=== PATIENT | female | born 2000 | race Hispanic/Latino ===

== ENCOUNTER 2021-11-27 16:01 | Day surgery (SDC) | payer OTHER ==
[2021-11-27 16:48] VITALS: BMI 39.4
[2021-11-27] MEDS ORDERED: hydrALAZINE 20 MG/ML VIAL SLOW IVP PRN (18:37)
[2021-11-27 19:55] LABS: Bilirubin Neg (Negative); Blood, Urine 25 (Negative); Clarity Clear (Clear); Glucose, Urine (Dipstick) Normal (Negative); Ketone, Urine Negative (Negative); Leukocyte 100 (Negative); Nitrite Negative (Negative); Protein, Urine (Dipstick) Negative (Neg-Trace); Urobilinogen Normal mg/dL (Less than 2)
[2021-11-27 20:38] LABS: Transitional Epithelial 0-3 HPF (None Seen)
[2021-11-27 20:40] LABS: Bacteria/HPF 2+ HPF (None Seen); Mucous/LPF 1+ LPF (<2+)
== END 2021-11-27 21:34 | disposition home or self-care (01) ==
LOC: CSHLD/OP 16:01
PROVIDERS: ATTEND Family Medicine
DX: O26.852 Spotting complicating pregnancy, second trimester (principal); O30.042 Twin pregnancy, dichorionic/diamniotic, second trimester; O23.42 Unspecified infection of urinary tract in pregnancy, second trimester; N39.0 Urinary tract infection, site not specified; O23.592 Infection of other part of genital tract in pregnancy, second trimester; B96.89 Other specified bacterial agents as the cause of diseases classified elsewhere; Z3A.24 24 weeks gestation of pregnancy; Z79.82 Long term (current) use of aspirin
CPT/HCPCS: 81003; 81015; 87480; 87510; 87660; 99284

== ENCOUNTER 2022-03-03 05:44 | Inpatient (IN) | payer OTHER ==
[2022-03-01 11:46] LABS: Hemoglobin 13.6 g/dL (12.0-15.5); Mean Corpuscular HGB CONC 34.3 g/dL (32.0-36.0); Mean Corpuscular Hemoglobin 31.1 pg (27.0-33.0); Mean Corpuscular Volume 90.6 fl (81.6-98.3); Mean Platelet Volume 11.1 fl (7.4-10.4); Platelet Count 216 10x3/uL (150-450); RBC Distribution Width 13.5 % (11.5-14.5); Red Blood Cell (RBC) Count 4.37 10x6/uL (3.90-5.03); White Blood Cell (WBC) Count 6.4 10x3/uL (3.5-10.5)
[2022-03-01 12:21] LABS: Hep B Surf Ag Non-Reactive S/CO (NonReactive); Syphilis Antibody Nonreactive (Nonreactive); Syphilis Antibody Index 0.03 S/CO (<1.00 Non-Reactive)
[2022-03-01 12:34] LABS: HBSAg Index 0.18 S/CO (0-0.99)
[2022-03-03 06:11] VITALS: BMI 43.7
[2022-03-03] MEDS ORDERED: Ondansetron PF 4 MG/2 ML Vial IVP PRN ×3 (06:25→10:46)
[2022-03-03] MEDS ORDERED: Famotidine/PF 20 mg/2ml Vial SLOW IVP PRN (06:25)
[2022-03-03] MEDS ORDERED: Promethazine HCl 25 MG/ML VIAL IM PRN ×3 (06:25→10:46)
[2022-03-03] MEDS ORDERED: hydrALAZINE 20 MG/ML VIAL SLOW IVP PRN ×2 (06:25→10:46)
[2022-03-03] MEDS ORDERED: Bicitra 30 ML UDCUP PO PRN (06:25)
[2022-03-03] MEDS ORDERED: Lactated Ringer's 1,000 ML IV SCH (06:30)
[2022-03-03] MEDS ORDERED: Phenylephrine 40 MG/NS 250 ML 250 ML ONE (07:29)
[2022-03-03] MEDS ORDERED: PHENYLEPHRINE-NS 100 MCG/ML 10 ML SYRINGE ONE (07:29)
[2022-03-03] MEDS ORDERED: Morphine PF 10 MG/10 ML VIAL ONE (07:29)
[2022-03-03] MEDS ORDERED: Oxytocin 10 UNITS/ML VIAL ONE ×2 (07:29→08:48)
[2022-03-03] MEDS ORDERED: Ketorolac Tromethamine 30 MG/ML VIAL ONE (08:47)
[2022-03-03] MEDS ORDERED: diphenhydrAMINE 50 MG/ML VIAL IVP PRN (09:23)
[2022-03-03] MEDS ORDERED: Ondansetron HCl/PF 4 MG/2 ML Vial IVP PRN (09:23)
[2022-03-03] MEDS ORDERED: Moisturizing Cream (Eucerin) 113 GM JAR TOP PRN (09:23)
[2022-03-03] MEDS ORDERED: Fentanyl 100 MCG/2 ML VIAL SLOW IVP PRN (09:23)
[2022-03-03] MEDS ORDERED: Promethazine HCl 25 MG SUPP PR PRN (09:23)
[2022-03-03] MEDS ORDERED: HYDROmorphone 2 MG/ML VIAL SLOW IVP PRN (09:23)
[2022-03-03] MEDS ORDERED: Naloxone HCl 0.4 mg/ml Vial IV PRN (09:23)
[2022-03-03] MEDS ORDERED: Naloxone HCl 0.4 mg/ml Vial IVP PRN ×2 (09:23)
[2022-03-03] MEDS ORDERED: Meperidine HCl/PF 25 MG/ML VIAL SLOW IVP PRN (09:23)
[2022-03-03] MEDS ORDERED: Ketorolac Tromethamine 30 MG/ML VIAL IVP SCH (09:30)
[2022-03-03] MEDS ORDERED: Communication Order-Pharmacy FS SCH (09:30)
[2022-03-03] MEDS ORDERED: Lanolin Ointment 7 GM TUBE TOP PRN (10:46)
[2022-03-03] MEDS ORDERED: Methylergonovine 0.2 MG/ML VIAL IM PRN (10:46)
[2022-03-03] MEDS ORDERED: Misoprostol 200 MCG TAB PR PRN (10:46)
[2022-03-03] MEDS ORDERED: NS w/ Oxytocin 30 units 500 ML IV SCH (10:46)
[2022-03-03] MEDS ORDERED: Misoprostol 200 MCG TAB PR SCH (15:15)
[2022-03-03] MEDS: Ketorolac Tromethamine 30 MG/ML VIAL IVP PRN ×2 (16:06→21:36)
[2022-03-03] MEDS ORDERED: HYDROcodone/Acetaminophen 5/325 mg Tablet PO PRN (21:30)
[2022-03-03] MEDS: Docusate 100 MG CAP PO SCH (21:37)
[2022-03-04] MEDS: Ketorolac Tromethamine 30 MG/ML VIAL IVP PRN (04:24)
[2022-03-04 05:40] LABS: Hemoglobin 10.5 g/dL (12.0-15.5); Mean Corpuscular HGB CONC 35.1 g/dL (32.0-36.0); Mean Corpuscular Hemoglobin 31.1 pg (27.0-33.0); Mean Corpuscular Volume 88.5 fl (81.6-98.3); Platelet Count 159 10x3/uL (150-450); RBC Distribution Width 13.4 % (11.5-14.5); Red Blood Cell (RBC) Count 3.38 10x6/uL (3.90-5.03); White Blood Cell (WBC) Count 7.1 10x3/uL (3.5-10.5)
[2022-03-04] MEDS ORDERED: Tranexamic Acid 1,000 MG in Sodium Chloride 0.9% 250 ML 250 ML IVPB SCH (07:00)
[2022-03-04] MEDS: HYDROcodone/Acetaminophen 5/325 mg Tablet PO PRN ×3 (08:33→23:32)
[2022-03-04] MEDS: Prenatal Vitamin 1 TAB PO SCH (08:33)
[2022-03-04] MEDS: Docusate 100 MG CAP PO SCH ×2 (08:33→21:12)
[2022-03-04] MEDS ORDERED: Boostrix 0.5 ML (Tdap) VIAL IM ONE (10:46)
[2022-03-04] MEDS: Ibuprofen 800 MG TAB PO SCH ×2 (13:20→21:12)
[2022-03-05] MEDS: Ibuprofen 800 MG TAB PO SCH (05:01)
[2022-03-05] MEDS: Prenatal Vitamin 1 TAB PO SCH (09:06)
[2022-03-05] MEDS: Docusate 100 MG CAP PO SCH (09:06)
[2022-03-05] MEDS ORDERED: Acetaminophen 325 MG TAB PO PRN (09:38)
[2022-03-05 11:16] VITALS: BP 125/68; TEMP 98.3
== END 2022-03-05 12:30 | disposition home or self-care (01) | DRG 787 ==
LOC: CSHLD 05:44 → CSHPED 11:30
PROVIDERS: ADMIT Obstetrics & Gynecology; ATTEND Obstetrics & Gynecology
PROC: 10D00Z1 Extraction of Products of Conception, Low, Open Approach (ICD-10-PCS; principal; 2022-03-03)
DX: O32.1XX1 Maternal care for breech presentation, fetus 1 (principal); O72.2 Delayed and secondary postpartum hemorrhage; O30.043 Twin pregnancy, dichorionic/diamniotic, third trimester; Z3A.38 38 weeks gestation of pregnancy; Z37.2 Twins, both liveborn; O99.824 Streptococcus B carrier state complicating childbirth; Z79.82 Long term (current) use of aspirin; Z79.899 Other long term (current) drug therapy; E66.9 Obesity, unspecified; O99.214 Obesity complicating childbirth
CPT/HCPCS: 36415; 51702; 85027; 86780; 86850; 86900; 86901; 87340; J0690; J1885; J2274; J2405; J2590; U0003; U0005